=== PATIENT | female | born 1995 | race Caucasian/White ===

== ENCOUNTER 2017-12-25 17:55 | Outpatient (REF) | payer MEDICAID, SELFPAY ==
--- NOTE | 2017-12-25 16:20 | PAPFT_PTH ---
PATIENT: Gianna Patel LOC: [facility] U#:[id number] AGE/SX: 22/F ROOM: RE12/25/[address]: Jerry Najera : 1995 BED: DIS: 12/25/2017 SPEC #: [id number] RECD: 12/26/17 13:02 STATUS: BERNABE REQ #: [id number] EBENEZER: 12/25/17 16:[address]: Jerry Najera DEPT: [facility] Cytology RECD BY: Nicole Greene Tissues: 1 - CX/ENDOCX FOR PAP SMEARS Procedures: PAP THIN PREP/UVM Screening Comments: [id number]
[2017-12-27 14:55] LABS: Chlamydia Result Negative; GC Result Negative; Specimen Description CERVIX
== END 2017-12-25 18:15 ==
LOC: NCHCN 17:55
PROVIDERS: PCP Family Medicine; Visit Provider Family Medicine
DX: Z11.3 Encounter for screening for infections with a predominantly sexual mode of transmission; Z12.4 Encounter for screening for malignant neoplasm of cervix; Z11.51 Encounter for screening for human papillomavirus (HPV); Z00.00 Encounter for general adult medical examination without abnormal findings
CPT/HCPCS: 87491; 87591; 88142

== ENCOUNTER 2018-04-25 16:53 | Observation (INO) | payer MEDICAID, SELFPAY ==
[2018-04-25] VITALS (10 sets, daily range): BP systolic 110–148; BP diastolic 59–96; PULSE 77–110; RESP 15–21; TEMP 36.5–37.1; O2SAT 98–100
--- NOTE | 2018-04-25 17:31 | DI.CT_ITS ---
SYMPTOM/DIAGNOSIS: RLQ PAIN CT ABDOMEN AND PELVIS: Images were performed from the lung bases through the ischial tuberosities after IV and without oral contrast. The appendix is mildly dilated and shows mild surrounding stranding consistent with uncomplicated appendicitis. There is no evidence of free air or abscess. The visualized portions of the lung bases appear clear. The liver, gallbladder, spleen, pancreas, kidneys, adrenals and urinary bladder are unremarkable. A follicle is seen on the left ovary. IMPRESSION: The findings are consistent with acute appendicitis.
--- NOTE | 2018-04-25 17:33 | ED.GENADUL_ITS ---
Discharge Plan Discharge Details Chief Complaint: Abd Prob Primary Care Provider: Jerry Najera ED Provider: Xu Heck Home Meds and New Rx's Prescriptions: No Action ibuprofen 800 mg Tablet 800 mg PO ONCE RF: 0 ascorbic acid (vitamin C) [Vitamin C] 500 mg Tablet 1,000 mg PO DAILY RF: 0 Medical Decision Making 22-year-old female presents with right lower quadrant pain that began insidiously yesterday and is progressively today. Was found fever when checked in her primary care physician's office along with focal tenderness at McBurney's point, and referred to the emergency department. She is otherwise healthy woman and has a Nexplanon implant for control. She arrives with a temperature of 36, pulse 107, blood pressure 140/76. Labs are reassuring, but CT does reveal evidence of early appendicits with 8mm appendix. Case discussed with on-call surgery, Dr Mota. Antibiotics initiated and patient to be admitted. HPI General Mode of arrival: ambulatory . Date/Time Provider Initiated Documentation: 04/25/18 17:15 . Limitations to Documentation: no limitations . History of Present Illness 22 year old F presents to the emergency department with the chief complaint of Right lower quadrant abdominal pain over 1.5d, described as moderate, Quality is described as aching, and is localized to the abdomen and right. Patient abdomen. Patient started experiencing this day(s) and it has been constant. Rest improves symptom(s), Movement worsens symptoms . Patient notes other (Fever at primary care office, decreased p.o.). Patient did receive the following treatments prior to arrival, none Related Data Home Medications Medication Instructions Recorded Confirmed ascorbic acid (vitamin C) [Vitamin 1,000 mg PO DAILY 04/25/18 04/25/18 C] ibuprofen 800 mg PO ONCE 04/25/18 04/25/18 Allergies Allergy/AdvReac Type Severity Reaction Status Date / Time prednisone AdvReac Makes me Unverified 04/25/18 17:32 crazy General Stated Complaint: Abd Prob NANCY: 3 Review of Systems Review of Systems 6 systems reviewed and otherwise negative [facility] Social History Smoking/Tobacco Use Status: Never Exam Narrative Exam Narrative: GEN: awake, alert, oriented 3. Pleasant, well groomed, interactive. HEAD: Normocephalic, atraumatic ENT: Mucous membranes moist, oropharynx unremarkable, External ear exam unremarkable EYES: PERRL, EOMI NECK: Full ROM, no NABIL, no menigismus CHEST/RESP: Nontender, clear to auscultation bilateral, no wheeze/rhonchi/rales CARDIOVASCULAR: Regular, tachycardic, no murmur, rub bib. 2+ Rad pulse bilateral ABDOMEN: Soft, tender in the right lower quadrant with mild rebound present, no mass. + Decreased bowel sounds EXT: Full ROM, no edema, no rash Neuro: Grossly normal neurologic exam, conversant, interactive. Psych: Speech fluent, thoughts congruent, affect normal Course Vital Signs Temperature 36.6 C 04/25/18 17:24 Pulse 107 H 04/25/18 17:24 Respiratory Rate 18 04/25/18 17:24 Blood Pressure 148/76 H 04/25/18 17:24 Pulse Oximetry 99 04/25/18 17:24 Temperature 36.6 C 04/25/18 17:24 Temperature Source Temporal Artery Scan 04/25/18 17:24 Pulse 107 H 04/25/18 17:24 Respiratory Rate 18 04/25/18 17:24 Blood Pressure 148/76 H 04/25/18 17:24 Blood Pressure Position Sitting 04/25/18 17:24 Pulse Oximetry 99 04/25/18 17:24 Oxygen Delivery Method Room Air 04/25/18 17:24 Oxygen Flow Rate 0 04/25/18 17:24
[2018-04-25 17:46] LABS: Bilirubin Negative (Negative); Blood Negative (Negative); Clarity Clear; Glucose Negative (Negative); Ketones Trace mg/dL (Negative); Leukocyte Esterase Negative (Negative); Nitrite Negative (Negative); Specific Gravity >= 1.030 (1.005-1.025); pH 6.5 (5-8)
--- NOTE | 2018-04-25 18:08 | NUR.NOTE ---
patient reports rlq pain since yesterday afternoon, 92000 today had chicken guillermo Nursing Note:
[2018-04-25] MEDS: Lactated Ringers 1,000 ML 1000 ML IV (18:14)
[2018-04-25 18:17] LABS: Abs Immature Grans 0.01 k/cumm (0.0-0.09); Absolute Basophil Count 0.02 k/cumm (0.0-0.2); Absolute Eosinophil Count 0.05 k/cumm (0.0-0.7); Absolute Lymphocyte Count 2.44 k/cumm (1.2-3.4); Absolute Monocyte Count 0.69 k/cumm (0.11-0.7); Absolute Neutrophil Count 4.46 k/cumm (1.2-6.7); Basophils % 0.3; Eosinophils % 0.7; HCT 38.7 % (36.0-46.0); HGB 13.3 g/dL (12.0-15.5); Immature Grans % 0.1; Lymphocytes % 31.8; Mean Corp. HGB Concentration 34.4 g/dL (32.0-36.0); Mean Corpuscular Hemoglobin 30.4 pg (27.0-33.0); Mean Corpuscular Volume 88.6 fL (80-95); Mean Platelet Volume 9.9 fL (8.0-11.0); Neutrophils % 58.1; Platelet Count 238 x1000/uL (130-400); RBC 4.37 m/cumm (4.00-5.20); RBC Distribution Width 12.4 % (11.7-14.6); White Blood Cell Count 7.67 k/cumm (4.4-10.8)
[2018-04-25 18:29] LABS: ALT 16 U/L (12-78); AST 12 U/L (15-37); Albumin 3.8 g/dL (3.4-5.0); Alkaline Phosphatase 69 U/L (46-116); Anion Gap 9.7 mmol/L (3-11); BUN 16 mg/dL (7-18); Bilirubin, Total 0.4 mg/dL (0.2-1.0); CO2 26.3 mmol/L (21.0-32.0); CREATININE 0.74 mg/dL (0.55-1.02); Calcium 9.2 mg/dL (8.5-10.1); Chloride 104 mmol/L (98-107); Glucose 94 mg/dL (70-100); Potassium 3.7 mmol/L (3.5-5.1); Sodium 140 mmol/L (136-145); Total Protein 7.6 g/dL (6.4-8.2)
[2018-04-25] MEDS: Omnipaque 350 MG/ML 100 ML BTL IJ (18:38)
--- NOTE | 2018-04-25 18:57 | NUR.NOTE ---
report given to Fouzia MIRANDA Nursing Note:
--- NOTE | 2018-04-25 19:00 | DI.VRAD_ITS ---
Addendum created by John Lopez MD on 04/25/2018 7:01:48 PM EST THIS REPORT CONTAINS FINDINGS THAT MAY BE CRITICAL TO PATIENT CARE. The findings were verbally communicated via telephone conference with BALAJI MAKI at 7:01 PM ESTon 04/25/2018The findings were acknowledged and understood. Initial report created on 04/25/2018 6:59:43 PM EST EXAM: CT Abdomen and Pelvis With Contrast EXAM DATE/TIME: 04/25/2018 5:31 PM CLINICAL HISTORY: 22 years old, female; Pain; Abdominal pain; Localized; Right lower quadrant (rlq); Patient HX: Rlq pain TECHNIQUE: Axial computed tomography images of the abdomen and pelvis with intravenous contrast. Coronal and sagittal reformatted images were created and reviewed. COMPARISON: No relevant prior studies available. FINDINGS: Mild dilatation and inflammation of the appendix measuring approximately 8 mm in greatest dimension suggesting acute appendicitis. No abscess or significant extraluminal air. No evidence of bowel obstruction. 3 cm left ovarian cyst. No obstructive uropathy. IMPRESSION: Early acute appendicitis. Dictated and Authenticated by: John Lopez MD. Ordering:ARUNA Mcnair MD
[2018-04-25] MEDS: Lactated Ringers 1,000 ML 125 ML IV ×2 (20:04→22:14)
--- NOTE | 2018-04-25 20:48 | HPE_ITS ---
Date of service: 04/25/18 Time of Service: 20:47 Assessment and Plan (1) Acute appendicitis: Current visit: Yes Status: Acute 22 y/o female with findings on exam and CT consistent with acute appendicitis. No evidence of phlegmon or abscess on CT. Patient is still quite tender despite being medicated for pain and was reportedly febrile. We discussed the rationale and procedure for proceeding with a laparoscopic appendectomy. Operative procedure including risks, benefits, and alternatives discussed with the patient. These include but are not limited to risks with general anesthesia, bleeding, infection, scarring, conversion to open, injury to adjacent structures and organs, leal placement, possible drain placement, and possible additional procedures. All questions answered. Patient wishes to proceed with surgery. She received Invanz in the ED for perioperative antibiotic coverage. History of Present Illness Chief Complaint: RLQ abdominal pain Narrative: 22 y/o female admitted through the ED at [facility] with acute appendicitis. Patient notes that she had sudden onset of sharp RLQ pain yesterday afternoon which persisted and worsened throughout the day today. She was seen by her PCP, Dr. Najera, and sent to the ED this afternoon for further evaluation. CT scan abd/pelvis demonstrated a mildly dilated and inflamed appendix measuring 8 mm. No abscess seen. WBC ~ 8. Patient notes that she was told she had a fever at Dr. Najera's office and on presentation to the ED. She denies chills, nausea, vomiting, diarrhea, melena, or hematochezia. She denies dysuria or hematuria. She notes her RLQ pain is worse with deep breathing. She has had some anorexia. She last ate a couple bi grant of chicken ~ 1130 today. She denies any chronic medical problems, medications, or prior surgeries. Review of Systems Review of Systems All systems reviewed & are unremarkable except as noted in HPI and below Constitutional Denies chills and Reports fever(s) Cardiovascular Denies chest pain, Denies rapid heart rate and Reports dyspnea on exertion Respiratory Reports cough and Reports dyspnea on exertion Gastrointestinal Reports abdominal pain, Denies melena, Denies hematochezia, Denies diarrhea, Denies nausea and Denies vomiting PFSH Social History Smoking/Tobacco Use Status: Never alcohol intake: current alcohol intake frequency: a few times a month substance use type: marijuana Meds Home Medications Medication Instructions Recorded Confirmed Type ascorbic acid (vitamin C) [Vitamin 1,000 mg PO DAILY 04/25/18 04/25/18 History C] ibuprofen 800 mg PO ONCE 04/25/18 04/25/18 History Allergies Allergy/AdvReac Type Severity Reaction Status Date / Time prednisone AdvReac Makes me Unverified 04/25/18 17:32 crazy Exam Const General: cooperative and well developed Nutritional Appearance: well nourished Orientation: alert and oriented x3 HENMT Head: normocephalic and atraumatic Neck Neck: no lymphadenopathy, trachea midline and supple Resp Effort & Inspection: normal respiratory effort and able to speak in complete sentences Cardio Jugular venous pressure: no JVD Rate: regular rate Rhythm: regular rhythm GI Inspection: non-distended Palpation: soft, not firm, guarding, no masses and tender in the RLQ (moderately tender localized to RLQ) Skin General skin exam: no rashes or lesions noted, no jaundice and other (warm to touch) Neuro General: alert and oriented x3 Speech: speech normal Results Imaging Abdomen CT scan report/results: report reviewed and image reviewed CT scan - pelvis: report reviewed and image reviewed Imaging Studies: Patient Name: TWYLA BAUMAN #: [id number]: ER Ordering Provider: : [facility] ER Primary Care Provider: Jerry Najera Date of Exam: 04/25/18Sex: F : 1995Age: 22 Exam(s) Addendum created by John Lopez MD on 04/25/2018 7:01:48 PM EST THIS REPORT CONTAINS FINDINGS THAT MAY BE CRITICAL TO PATIENT CARE. The findings were verbally communicated via telephone conference with BALAJI MAKI at 7:01 PM ESTon 04/25/2018The findings were acknowledged and understood. Initial report created on 04/25/2018 6:59:43 PM EST EXAM: CT Abdomen and Pelvis With Contrast EXAM DATE/TIME: 04/25/2018 5:31 PM CLINICAL HISTORY: 22 years old, female; Pain; Abdominal pain; Localized; Right lower quadrant (rlq); Patient HX: Rlq pain TECHNIQUE: Axial computed tomography images of the abdomen and pelvis with intravenous contrast. Coronal and sagittal reformatted images were created and reviewed. COMPARISON: No relevant prior studies available. FINDINGS: Mild dilatation and inflammation of the appendix measuring approximately 8 mm in greatest dimension suggesting acute appendicitis. No abscess or significant extraluminal air. No evidence of bowel obstruction. 3 cm left ovarian cyst. No obstructive uropathy. IMPRESSION: Early acute appendicitis. Dictated and Authenticated by: John Lopez MD. Ordering:ARUNA Mcnair MD Ordered By: CC: Dictated By: Reports vrad 04/25/18 1731 04/25/18 1901 Transcribed By: Annemarie Alarcon This is privileged, confidential information intended only for the provider named. Any use or distribution by any person other than this provider is strictly prohibited. If you receive this report in error, please notify us immediately at [phone] and return the original report to us at the address above. Thank-you. Labs : 04/25/18 18:12 04/25/18 18:12 Laboratory Results - last 24 hr 04/25/18 04/25/18 04/25/18 17:40 18:12 18:12 WBC 7.67 RBC 4.37 Hgb 13.3 Hct 38.7 MCV 88.6 MCH 30.4 MCHC 34.4 RDW 12.4 Plt Count 238 MPV 9.9 Immature Gran % 0.1 Neutrophils % 58.1 Lymphocytes % 31.8 Monocytes % 9.0 Eosinophils % 0.7 Basophils % 0.3 Absolute Neutrophils 4.46 Absolute Lymphocytes 2.44 Absolute Monocytes 0.69 Absolute Eosinophils 0.05 Absolute Basophils 0.02 Sodium 140 Potassium 3.7 Chloride 104 Carbon Dioxide 26.3 Anion Gap 9.7 BUN 16 Creatinine 0.74 Estimated GFR/1.73 m2 >= 60.00 Glucose 94 Calcium 9.2 Total Bilirubin 0.4 AST 12 L ALT 16 Alkaline Phosphatase 69 Total Protein 7.6 Albumin 3.8 Urine Color Yellow Urine Clarity Clear Urine pH 6.5 Ur Specific [place] >= 1.030 H Urine Protein Negative Urine Ketones Trace H Urine Blood Negative Urine Nitrite Negative Urine Bilirubin Negative Urine Urobilinogen 1.0 H Ur Leukocyte Esterase Negative Urine Glucose Negative Last Vital Signs Temp 37.1 C 04/25/18 20:29 Pulse 87 04/25/18 20:29 Resp 18 04/25/18 20:29 BP 123/80 04/25/18 20:29 Pulse Ox 100 04/25/18 20:29
--- NOTE | 2018-04-25 22:44 | APP_PTH ---
PATIENT: Gianna Patel LOC: [facility]#:[id number] AGE/SX: 22/F ROOM: RE04/25/[address]: Jeramy Mota : 1995 BED: A DIS: 04/26/2018 SPEC #: [id number] RECD: 04/28/18 12:49 STATUS: BERNABE REQ #: [id number] EBENEZER: 04/25/18 22:[address]: Jeramy Mota DEPT: Surgical Specimen RECD BY: Nicole Greene ENTERED: 04/28/18 12:49 SP TYPE: Appendix OTHR DR: Jerry Najera Tissues: 1 - APPENDIX NOT INCIDENTAL Procedures: GROSS AND MICRO LEVEL 3 Comments: [id number]
[2018-04-25] MEDS: Bupivacaine 0.25% Pres-Free 30 ML VIAL (22:55)
--- NOTE | 2018-04-25 23:06 | ROE_ITS ---
Date of service: 04/25/18 Time of Service: 23:04 Operative Note DATE OF PROCEDURE: 04/25/18 PRE-OP DIAGNOSIS: Acute appendicitis POST-OP DIAGNOSIS: same PROCEDURE: Laparoscopic appendectomy SURGEON: Jeramy Mota SHOEMAKER CUSTOM: Negrita Lemus ANESTHESIA: GETA ESTIMATED BLOOD LOSS: 5 PATHOLOGY: other (Appendix) COMPLICATIONS: None Patient was transported to: PACU Patient's condition: stable Indications: 22 y/o female who presented to the ED with findings consistent with acute appendicitis now presents for a laparoscopic appendectomy. Operative procedure including risks, benefits, and alternatives discussed with patient and informed consent obtained prior to surgery. Findings: Acute appendicitis with mildly inflamed/thickened appendix. No phlegmon or abscess. Procedure Description: Patient was brought to the operating room and placed on the table in the supine position. SCDs placed on both lower extremities. Patient was intubated and placed under general anesthesia. Left arm was carefully tucked at the side. Feliz catheter placed. Anterior abdominal wall prepped and draped in the usual sterile fashion with Chloraprep. Patient had received Invanz for perioperative antibiotic coverage. Time out performed per protocol. Initial incision made just below the umbilicus and carried down to the fascia, which was grasped, elevated and incised. Peritoneal cavity was bluntly entered in the midline. Peritoneal surface was swept with a finger and no adhesions noted. Stay sutures of 0-vicryl were placed on either side of the fascial opening. Kamari port placed, CO2 connected, and abdomen insufflated to 15 mm Hg. Patient placed in Trendelenberg with the right side elevated. Remaining ports placed under direct vision including a 5 mm port in the suprapubic region and a second 5 mm port in the LLQ after injection with 0.25% Marcaine. There was good visualization in the pelvis. Right ovary, tube, and uterus were visualized and grossly unremarkable. Terminal ileum, cecum, and gallbladder were likewise visualized and grossly unremarkable. The appendix was noted to be retrocecal in position. It appeared to be mildly inflamed and thickened with no associated phlegmon or abscess. The base of the appendix was isolated and divided with the endoGIA stapler with a medium-thick 45 mm purple cartridge. The mesoappendix was divided with the buchanan vascular 45 mm cartridge x 2. There was oozing from the staple line on the mesoappendix which was controlled with careful use of cautery. Good hemostasis noted on final inspection. The RLQ was irrigated with saline and suctioned until the effluent was clear. Terminal ileum, cecum, and staple lines inspected and noted to be intact with no signs of injury. Ports removed under direct vision as the abdomen was decompressed. Fascia at the infraumbilical site was closed by tying together the stay sutures in a pursestring fashion. Additional 0.25% marcaine injected at this site for postop analgesia. Skin incisions closed with subcuticular 4-0 monocryl and skin adhesive. Feliz catheter removed at the end of the procedure. Patient tolerated surgery well, was awakened from anesthesia, and transferred to recovery in satisfactory condition.
--- NOTE | 2018-04-26 00:13 | NUR.NOTE ---
Patient was brought to the unit from the PACU with history of appendectomy LAP under GA. She was brought by PACU nurse and Doctor. On assessment tearful young lady not in any painful distress but state she is just feeling emotional also that she has anxiety problems. She is conscious, alert, rational and oriented x 3. Patient wearing glasses state they aid her vision. Chest clear, abdomen tender. uncovered incisions noted to the umbilical area, also to the left side of abdomen and above the symphis pubis.> patient placed and bed and oriented to the room.
[2018-04-26] MEDS: HYDROmorphone 2 MG/ML VIAL 1 MG IVP ×2 (02:07→09:57)
[2018-04-26] MEDS: Normal Saline Flush 10 ML SYR IVP ×2 (02:09→09:58)
[2018-04-26] MEDS: Lactated Ringers 1,000 ML 125 ML IV ×2 (02:09→10:03)
[2018-04-26 07:25] VITALS: BP 108/71; PULSE 88; RESP 20; TEMP 36.2; O2SAT 99
[2018-04-26] MEDS: Acetaminophen 500 MG TAB 1000 MG PO (09:12)
--- NOTE | 2018-04-26 10:17 | DSE_ITS ---
Date of service: 04/26/18 Time of Service: 10:16 DS: Diagnosis Discharge Diagnosis (1) Acute appendicitis: Status: Acute Discharge Plan Disposition Patient Disposition: HOME Condition: Good Discharge Details Chief Complaint: Abd Prob Reason For Visit: ACUTE APPENDICITIS Admit Date/Time: 04/25/18 21:58 Admit Provider: Jeramy Mota Attending Provider: Jeramy Mota Primary Care Provider: Jerry Najera ED Provider: Xu Heck Hospital Course Hospital Course: 22 y/o female admitted through the ED on 04/25/18 for acute appendicitis. Patient underwent an uneventful lap appy on 04/25/18. Post-op she is doing well this am. She notes some soreness at her surgical sites but her preop RLQ pain has resolved. She is tolerating clears without nausea or vomiting. Will advance diet to regular and discharge home this afternoon if tolerating diet. Home Meds and New Rx's Prescriptions: New hydrocodone-acetaminophen 5-325 mg Tablet 1 tab PO Q4H PRN PRNQty: 20 RF: 0 Continued ascorbic acid (vitamin C) [Vitamin C] 500 mg Tablet 1,000 mg PO DAILY RF: 0 Discontinued ibuprofen 800 mg Tablet 800 mg PO ONCE RF: 0 Discharge Instructions Instructions: Laparoscopic Appendectomy (DC) Stand Alone Forms: Nursing Discharge Form Referrals: Noelle Naqvi MD [ [facility] STAFF PHYSICIAN] - (The office will call you with an appointment date and time. If you do not hear from them by Saturday 04/29, please call them at [phone].) Activity:: No lifting > 20 pounds x 2 weeks. May shower starting 04/26/18. Equipment/Supplies:: No Equipment Needed Diet:: As Tolerated Discharge Orders Discharge Orders: Discharge Order (Routine); Ordered 04/26/18 Ordered By: Jeramy Mota Exam Const General: cooperative, no acute distress and well developed Nutritional Appearance: well nourished Orientation: alert and oriented x3 HENMT Head: normocephalic and atraumatic Eyes Sclera: sclerae normal Resp Effort & Inspection: normal respiratory effort and able to speak in complete sentences Cardio Jugular venous pressure: no JVD GI Inspection: non-distended and incision (port sites x 3 - dry/clean/skin intact) Palpation: soft, not firm, no guarding, no masses and nontender Skin General skin exam: no rashes or lesions noted DS: Data Vitals/I&O Vitals and I&O: Vital Signs Temperature 36.6 C 04/25/18 23:40 Temperature Source Tympanic 04/25/18 23:40 Pulse 107 H 04/25/18 23:40 Pulse Rhythm Regular 04/26/18 08:10 Respiratory Rate 20 04/25/18 23:40 Respiratory Effort Non-Labored 04/26/18 08:10 Respiratory Depth Normal 04/26/18 08:10 Respiratory Pattern Normal 04/25/18 23:40 Blood Pressure 110/67 04/25/18 23:40 Blood Pressure Position Sitting 04/25/18 17:24 Pulse Oximetry 99 04/25/18 23:40 Oxygen Delivery Method Room Air 04/25/18 23:40 Oxygen Flow Rate 0 04/25/18 23:40 Pain Level 6 04/26/18 09:58 Intake & Output 04/25/18 04/25/18 04/26/18 11:59 23:59 11:59 Intake Total 2900 / 2900 1187.5 / 1187.5 Output Total 300 / 300 Balance 2600 / 2600 1187.5 / 1187.5 Weight 77.111 kg Intake: IV 2900 / 2900 1187.5 / 1187.5 Output: Urine 300 / 300 Other: Urine Color Yellow Urine Appearance Clear Emesis Description None Labs on day of discharge: Labs from last 24 hours 04/25/18 04/25/18 04/25/18 18:12 18:12 17:40 WBC 7.67 RBC 4.37 Hgb 13.3 Hct 38.7 MCV 88.6 MCH 30.4 MCHC 34.4 RDW 12.4 Plt Count 238 MPV 9.9 Immature Gran % 0.1 Neutrophils % 58.1 Lymphocytes % 31.8 Monocytes % 9.0 Eosinophils % 0.7 Basophils % 0.3 Absolute Neutrophils 4.46 Absolute Lymphocytes 2.44 Absolute Monocytes 0.69 Absolute Eosinophils 0.05 Absolute Basophils 0.02 Sodium 140 Potassium 3.7 Chloride 104 Carbon Dioxide 26.3 Anion Gap 9.7 BUN 16 Creatinine 0.74 Estimated GFR/1.73 m2 >= 60.00 Glucose 94 Calcium 9.2 Total Bilirubin 0.4 AST 12 L ALT 16 Alkaline Phosphatase 69 Total Protein 7.6 Albumin 3.8 Urine Color Yellow Urine Clarity Clear Urine pH 6.5 Ur Specific [place] >= 1.030 H Urine Protein Negative Urine Ketones Trace H Urine Blood Negative Urine Nitrite Negative Urine Bilirubin Negative Urine Urobilinogen 1.0 H Ur Leukocyte Esterase Negative Urine Glucose Negative PFSH Social History Smoking/Tobacco Use Status: Never alcohol intake: current alcohol intake frequency: a few times a month substance use type: marijuana
--- NOTE | 2018-04-26 14:59 | PDOC.CMPRO ---
- If Service Date Differs Date of service: 04/26/18 Time of Service: 14:59 Care Management Progress Note Gianna was admitted S/P lap appy. She will return home today with no anticipated services. Gianna will F/U with Dr. Mota and plan of care as prescribed. Family to transport her home.
== END 2018-04-26 11:36 | disposition home or self-care (01) ==
LOC: ER 19:41 → MS 04-26 10:27 → SUR 04-28 10:49 → ER 04-28 10:49 → MS 04-28 10:50
PROVIDERS: Admitting Provider Surgery; Emergency Provider Emergency Medicine; PCP Family Medicine; Visit Provider Surgery
PROC: 0DTJ4ZZ Resection of Appendix, Percutaneous Endoscopic Approach (ICD-10-PCS; CPT 44970; principal; 2018-04-25 21:30)
DX: K35.890 Other acute appendicitis without perforation or gangrene (principal)
CPT/HCPCS: 44970; 36415; 80053; 81025; 96361; 96365; 96375; 99222; 99285; NC; 74177; 81003; 85025; 88304; 99284; G0378; J0131; J1100; J1200; J1335; J1885; J2250; J2405; J3010; J3490

== ENCOUNTER 2019-02-27 16:21 | Outpatient (REF) | payer MEDICAID, SELFPAY ==
[2019-03-02 14:44] LABS: Chlamydia Result Negative (Negative)
[2019-03-02 15:23] LABS: GC Result Negative (Negative)
== END 2019-02-27 16:41 ==
LOC: NCHCN 16:21
PROVIDERS: PCP Family Medicine; Visit Provider Family Medicine
DX: Z11.3 Encounter for screening for infections with a predominantly sexual mode of transmission (principal)
CPT/HCPCS: 87491; 87591

== ENCOUNTER 2020-01-18 16:38 | Outpatient (REF) | payer MEDICAID, SELFPAY ==
[2020-01-22 14:36] LABS: Patient Race White; SARS-CoV-2 RNA Undetected (Undetected); SARS-CoV-2 Specimen Source Nasal
== END 2020-01-18 16:58 ==
LOC: NCHCN 16:38
PROVIDERS: PCP Family Medicine; Visit Provider Nurse Practitioner Family
DX: R50.9 Fever, unspecified (principal)
CPT/HCPCS: U0003

== ENCOUNTER 2021-06-09 18:03 | Outpatient (REF) | payer MEDICAID, SELFPAY ==
--- NOTE | 2021-06-09 17:00 | PAPFT_PTH ---
PATIENT: Gianna Patel LOC: [facility] U#:[id number] AGE/SX: 25/F ROOM: RE06/09/[address]: Jerry Najera : 1995 BED: DIS: 06/09/2021 SPEC #: [id number] RECD: 06/09/21 18:33 STATUS: BERNABE REQ #: [id number] EBENEZER: 06/09/21 17:[address]: Jerry Najera DEPT: [facility] Cytology RECD BY: Nicole Greene Tissues: 1 - CX/ENDOCX FOR PAP SMEARS Procedures: PAP THIN PREP/UVM Screening Comments: [id number]
== END 2021-06-09 18:04 | disposition home or self-care (01) ==
LOC: NCHCN 18:03
PROVIDERS: PCP Family Medicine; Visit Provider Family Medicine
DX: Z12.4 Encounter for screening for malignant neoplasm of cervix (principal)
CPT/HCPCS: 88142

== ENCOUNTER 2022-07-26 12:55 | Outpatient (REF) | payer MEDICAID, SELFPAY ==
[2022-07-26 16:54] LABS: Calculated LDL 105 mg/dL (<100); Cholesterol 175 mg/dL (<200); HDL Cholesterol 55 mg/dL (40-60); Triglyceride 76 mg/dL (<150)
[2022-07-27 09:09] LABS: Hepatitis B Surface Ag Negative (Negative)
[2022-07-27 10:08] LABS: Hepatitis C Ab w Rflx HCV PCR Negative (Negative)
== END 2022-07-26 12:56 | disposition home or self-care (01) ==
LOC: NCHCN 12:55
PROVIDERS: PCP Family Medicine; Visit Provider Family Medicine
DX: Z13.1 Encounter for screening for diabetes mellitus (principal); Z13.220 Encounter for screening for lipoid disorders; Z11.59 Encounter for screening for other viral diseases; Z00.00 Encounter for general adult medical examination without abnormal findings
CPT/HCPCS: 80061; 86803; 87340; 83036

== ENCOUNTER 2024-09-18 22:38 | Outpatient (REF) | payer MEDICAID, SELFPAY ==
--- NOTE | 2024-09-18 15:15 | PAPFT_PTH ---
PATIENT: Gianna Patel LOC: [facility] U#:[id number] AGE/SX: 28/F ROOM: RE09/18/[address]: Nereida Taveras : 1995 BED: DIS: 09/18/2024 SPEC #: [id number] RECD: 09/21/24 18:10 STATUS: BERNABE REQ #: [id number] EBENEZER: 09/18/24 15:[address]: Nereida Taveras DEPT: [facility] Cytology RECD BY: Nicole Greene ENTERED: 09/21/24 18:10 SP TYPE: PAPFT OTHR DR: Jerry Najera Tissues: 1 - CX/ENDOCX FOR PAP SMEARS Procedures: PAP THIN PREP/UVM Screening HPV DNA PROBE Comments: [id number] (HPV 16 & 18/45) (CHLAMYDIA/GC)
[2024-09-22 12:17] LABS: Chlamydia Result Negative (Negative); GC Result Negative (Negative)
== END 2024-09-18 22:39 | disposition home or self-care (01) ==
LOC: NCHCN 22:38
PROVIDERS: PCP Family Medicine; Visit Provider Nurse Practitioner Family
DX: Z11.51 Encounter for screening for human papillomavirus (HPV) (principal); Z01.419 Encounter for gynecological examination (general) (routine) without abnormal findings; Z11.3 Encounter for screening for infections with a predominantly sexual mode of transmission
CPT/HCPCS: 87491; 87591; 88142; 87624